=== PATIENT | female | born 1990 | race American Indian/Alaskan Native ===

== ENCOUNTER 2020-05-22 10:07 | Emergency (ER) | payer SELFPAY ==
--- NOTE | 2020-05-22 11:29 | XRay Report ---
LEFT SHOULDER 3 VIEWS INDICATION / CLINICAL INFORMATION: Lt. shoulder pain, decreased ROM COMPARISON: None available. FINDINGS: BONES / JOINT(S): No acute fracture or subluxation. No significant arthritis. SOFT TISSUES: No significant abnormality. ADDITIONAL FINDINGS: None. Signer Name: Denis Solano MD Signed: 05/22/2020 11:25 AM Workstation Name: [email or web address]
--- NOTE | 2020-05-22 11:39 | Emergency Department Report ---
ED Upper Extremity Inj HPI - General Chief Complaint: Shoulder Injury Stated Complaint: LEFT SHOULDER PAIN Time Seen by Provider: 05/22/20 10:26 Source: patient Mode of arrival: Ambulatory Limitations: No Limitations - Related Data Previous Rx's Medication Instructions Recorded Last Taken Type Acetaminophen/Codeine [Tylenol #3] 1 tab PO Q6H PRN #20 tab 02/05/16 Unknown Rx Ibuprofen [Motrin 800 MG tab] 800 mg PO Q8HR PRN #30 tablet 05/05/16 Unknown Rx Lidocain2.5%/Prilocai2.5% [Emla] 5 gm TP NOW #1 tube 05/05/16 Unknown Rx oxyCODONE /ACETAMINOPHEN [Percocet 1 tab PO Q4HR PRN #30 tab 05/05/16 Unknown Rx 5/325 mg] Naproxen [Naprosyn] 500 mg PO BID PRN #20 tablet 05/22/20 Unknown Rx Allergies Allergy/AdvReac Type Severity Reaction Status Date / Time No Known Allergies Allergy Verified 02/05/16 16:42 ED Review of Systems ROS: Stated complaint: LEFT SHOULDER PAIN Other details as noted in HPI ED Past Medical Hx - Past Medical History Hx Hypertension: No Hx Heart Attack/AMI: No Hx Congestive Heart Failure: No Hx Diabetes: No Hx Deep Vein Thrombosis: No Hx Renal Disease: No Hx Sickle Cell Disease: No Hx Seizures: No Hx Asthma: No Hx COPD: No Hx HIV: No - Surgical History Additional Surgical History: . ECTOPIC -TUBE REMOVED - Social History Smoking Status: Never Smoker - Medications Home Medications: Home Medications Medication Instructions Recorded Confirmed Last Taken Type Acetaminophen/Codeine [Tylenol #3] 1 tab PO Q6H PRN #20 tab 02/05/16 Unknown Rx Ibuprofen [Motrin 800 MG tab] 800 mg PO Q8HR PRN #30 tablet 05/05/16 Unknown Rx Lidocain2.5%/Prilocai2.5% [Emla] 5 gm TP NOW #1 tube 05/05/16 Unknown Rx oxyCODONE /ACETAMINOPHEN [Percocet 1 tab PO Q4HR PRN #30 tab 05/05/16 Unknown Rx 5/325 mg] Naproxen [Naprosyn] 500 mg PO BID PRN #20 tablet 05/22/20 Unknown Rx ED Physical Exam - General Limitations: No Limitations Critical care attestation.: If time is entered above; I have spent that time in minutes in the direct care of this critically ill patient, excluding procedure time. ED Disposition Clinical Impression: Shoulder strain Disposition: TO HOME OR SELFCARE Is pt being admited?: No Does the pt Need Aspirin: No Condition: Stable Additional Instructions: ICE REST TYLENOL OTC FOR PAIN NAPROSYN FOR PAIN - SEE RX SLING FOR COMFORT FOLLOW UP WITH DR CHRISTOPHER REFERRAL BELOW XRAY NO DISLOCATION OR FRACTURE Prescriptions: Naproxen [Naprosyn] 500 mg PO BID PRN #20 tablet PRN Reason: Pain Time of Disposition: 11:40
[2020-05-22 11:43] VITALS: BP 123/76
== END 2020-05-22 11:43 | disposition home or self-care (01) ==
LOC: ED 10:07
DX: S46.912A Strain of unspecified muscle, fascia and tendon at shoulder and upper arm level, left arm, initial encounter (principal); Z79.899 Other long term (current) drug therapy; Z98.890 Other specified postprocedural states; X58.XXXA Exposure to other specified factors, initial encounter; Y93.89 Activity, other specified; Y92.89 Other specified places as the place of occurrence of the external cause; Y99.8 Other external cause status
CPT/HCPCS: 99283

== ENCOUNTER 2021-08-01 21:38 | Emergency (ER) | payer MEDICAID ==
[2021-08-01] MEDS ORDERED: SODIUM CHLORIDE 0.9% 1000 ML IV SOLN IV ONE (22:15)
[2021-08-01] MEDS ORDERED: ONDANSETRON 4 MG/2 ML INJ IV ONE (22:15)
--- NOTE | 2021-08-01 22:18 | Emergency Department Report ---
ED General Adult HPI - General Chief complaint: Nausea/Vomiting/Diarrhea Stated complaint: HIGH FEVER NAUSEA/VOMIITING PUI?: Yes Time Seen by Provider: 08/01/21 22:13 Source: patient Mode of arrival: Ambulatory Limitations: No Limitations - History of Present Illness Initial comments: Patient is a 31-year-old female that presents emergency room with complaints of cough, nausea, vomiting, fever. Patient denies diarrhea. Patient complains of loss of taste and smell. Patient states she is not vaccinated against COVID-19. Patient states that she had a rapid Covid test done yesterday and was negative. Patient states her symptoms been going on for 3 days. Patient dates he cannot hold anything down. But states she feels dehydrated. Patient denies chest pain. Patient denies shortness of breath. Patient states she feels horrible. Patient denies recent travel. Patient denies recent international travel. Patient denies exposure to the novel coronavirus. Patient denies sick contacts. Patient denies diarrhea. Patient denies coming in contact with anybody with symptoms of the novel coronavirus. -: Sudden Severity scale (0 -10): 0 Consistency: constant Improves with: rest Worsens with: movement Associated Symptoms: cough, fever/chills, headaches, loss of appetite, malaise, nausea/vomiting. denies: confusion, chest pain, diaphoresis, rash, seizure, shortness of breath, syncope, weakness - Related Data Previous Rx's Medication Instructions Recorded Last Taken Type Acetaminophen/Codeine [Tylenol #3] 1 tab PO Q6H PRN #20 tab 02/05/16 Unknown Rx Ibuprofen [Motrin 800 MG tab] 800 mg PO Q8HR PRN #30 tablet 05/05/16 Unknown Rx Lidocain2.5%/Prilocai2.5% [Emla] 5 gm TP NOW #1 tube 05/05/16 Unknown Rx oxyCODONE /ACETAMINOPHEN [Percocet 1 tab PO Q4HR PRN #30 tab 05/05/16 Unknown Rx 5/325 mg] Naproxen [Naprosyn] 500 mg PO BID PRN #20 tablet 05/22/20 Unknown Rx Azithromycin [Zithromax Tri-Froilan] 500 mg PO DAILY 3 Days #3 tablet 08/02/21 Unknown Rx Benzonatate [Tessalon Perles] 100 mg PO Q6HR PRN #20 capsule 08/02/21 Unknown Rx Ondansetron [Zofran Odt] 4 mg PO Q6HR PRN #25 tab.rapdis 08/02/21 Unknown Rx methylPREDNISolone [Medrol 4MG 4 mg PO DAILY 6 Days #1 tab.ds.pk 08/02/21 Unkno wn Rx DOSEPAK (21 tabs)] Allergies Allergy/AdvReac Type Severity Reaction Status Date / Time No Known Allergies Allergy Verified 08/01/21 22:09 ED Review of Systems ROS: Stated complaint: HIGH FEVER NAUSEA/VOMIITING Other details as noted in HPI Constitutional: chills, fever, malaise Eyes: denies: eye pain, eye discharge, vision change ENT: denies: ear pain, throat pain Respiratory: cough. denies: shortness of breath, wheezing Cardiovascular: denies: chest pain, palpitations Endocrine: no symptoms reported Gastrointestinal: as per HPI, nausea, vomiting. denies: abdominal pain, diarrhea Genitourinary: denies: urgency, dysuria, discharge Musculoskeletal: denies: back pain, joint swelling, arthralgia Skin: denies: rash, lesions Neurological: denies: headache, weakness, paresthesias Psychiatric: denies: anxiety, depression Hematological/Lymphatic: denies: easy bleeding, easy bruising ED Past Medical Hx - Past Medical History Previous Medical History?: No Hx Hypertension: No Hx Heart Attack/AMI: No Hx Congestive Heart Failure: No Hx Diabetes: No Hx Deep Vein Thrombosis: No Hx Renal Disease: No Hx Sickle Cell Disease: No Hx Seizures: No Hx Asthma: No Hx COPD: No Hx HIV: No - Surgical History Past Surgical History?: Yes Additional Surgical History: . ECTOPIC -TUBE REMOVED - Family History Family history: no significant - Social History Smoking Status: Never Smoker Substance Use Type: None - Medications Home Medications: Home Medications Medication Instructions Recorded Confirmed Last Taken Type Acetaminophen/Codeine [Tylenol #3] 1 tab PO Q6H PRN #20 tab 02/05/16 Unknown Rx Ibuprofen [Motrin 800 MG tab] 800 mg PO Q8HR PRN #30 tablet 05/05/16 Unknown Rx Lidocain2.5%/Prilocai2.5% [Emla] 5 gm TP NOW #1 tube 05/05/16 Unknown Rx oxyCODONE /ACETAMINOPHEN [Percocet 1 tab PO Q4HR PRN #30 tab 05/05/16 Unknown Rx 5/325 mg] Naproxen [Naprosyn] 500 mg PO BID PRN #20 tablet 05/22/20 Unknown Rx Azithromycin [Zithromax Tri-Froilan] 500 mg PO DAILY 3 Days #3 tablet 08/02/21 Unknown Rx Benzonatate [Tessalon Perles] 100 mg PO Q6HR PRN #20 capsule 08/02/21 Unknown Rx Ondansetron [Zofran Odt] 4 mg PO Q6HR PRN #25 tab.rapdis 08/02/21 Unknown Rx methylPREDNISolone [Medrol 4MG 4 mg PO DAILY 6 Days #1 tab.ds.pk 08/02/21 Unknown Rx DOSEPAK (21 tabs)] ED Physical Exam - General Limitations: No Limitations General appearance: alert, in no apparent distress - Head Head exam: Present: atraumatic, normocephalic - Eye Eye exam: Present: normal appearance - ENT ENT exam: Present: mucous membranes moist - Neck Neck exam: Present: normal inspection - Respiratory Respiratory exam: Present: normal lung sounds bilaterally. Absent: respiratory distress, wheezes, rales - Cardiovascular Cardiovascular Exam: Present: regular rate, normal rhythm. Absent: systolic murmur, diastolic murmur, rubs, gallop - GI/Abdominal GI/Abdominal exam: Present: soft, normal bowel sounds. Absent: distended, tenderness, guarding - Extremities Exam Extremities exam: Present: normal inspection - Back Exam Back exam: Present: normal inspection - Neurological Exam Neurological exam: Present: alert, oriented X3 - Psychiatric Psychiatric exam: Present: normal affect, normal mood - Skin Skin exam: Present: warm, dry, intact, normal color. Absent: rash ED Course Vital Signs 08/01/21 08/01/21 08/02/21 21:38 22:38 00:16 Temperature 99.1 F 99.1 F Pulse Rate 127 H 112 H 107 H Respiratory 18 18 20 Rate Blood Pressure 132/84 129/79 126/72 [Right] O2 Sat by Pulse 99 100 97 Oximetry - Reevaluation(s) Reevaluation #1: I discussed all results and clinical findings with patient. I discussed plan of care with patient. Patient agrees with plan of care. Patient is stable for discharge. Patient will be discharged home. Patient given discharge instructions. Patient voiced understanding of discharge instructions. 08/02/21 00:22 ED Medical Decision Making - Lab Data Result diagrams: 08/01/21 22:15 08/01/21 22:15 - Radiology Data Radiology results: report reviewed, image reviewed interpreted by me: Chest x-ray: No pneumonia, no pneumothorax, no foreign body, no osseous findings, no acute findings CHEST 1 VIEW 08/01/2021 10:52 PM INDICATION / CLINICAL INFORMATION: fever. COMPARISON: None available. FINDINGS: SUPPORT DEVICES: None. HEART / MEDIASTINUM: No significant abnormality. LUNGS / PLEURA: No significant pulmonary or pleural abnormality. No pneumothorax. ADDITIONAL FINDINGS: No significant additional findings. IMPRESSION: 1. No acute findings. - Medical Decision Making Patient is a 31-year-old female that presents patient with complaints of cough, fever, nausea, vomiting, loss of smell, loss of taste. Patient had a negative Covid test yesterday. Patient had labs done which were sent. Patient was never hypoxic. Patient's chest x-ray was negative for acute findings. Patient is stable for discharge. Patient will be discharged home. Patient will be given Zithromax and Medrol Dosepak. Patient also be given Zofran. Patient will be given Tessalon Perles for cough. Patient does not require inpatient services. Patient not require further emergency medical service. Patient to be managed as an outpatient. I discussed all results and clinical findings with patient. I discussed plan of care with patient. Patient agrees with plan of care. Patient is stable for discharge. Patient will be discharged home. Patient given discharge instructions. Patient voiced understanding of discharge instructions. - Differential Diagnosis Covid, URI, cough, gastroenteritis, nausea, vomiting, fever Critical care attestation.: If time is entered above; I have spent that time in minutes in the direct care of this critically ill patient, excluding procedure time. ED Disposition Clinical Impression: Person under investigation for COVID-19, Cough, Gastroenteritis Upper respiratory infection Qualifiers: URI type: unspecified URI Qualified Code(s): J06.9 - Acute upper respiratory infection, unspecified Fever Qualifiers: Fever type: unspecified Qualified Code(s): R50.9 - Fever, unspecified Nausea & vomiting Qualifiers: Vomiting type: unspecified Vomiting Intractability: non-intractable Qualified Code(s): R11.2 - Nausea with vomiting, unspecified Disposition: HOME / SELF CARE / HOMELESS Is pt being admited?: No Does the pt Need Aspirin: No Condition: Stable Instructions: Viral Respiratory Infection, [id number], Upper Respiratory Infection, Adult, [id number], Viral Gastroenteritis, Adult, Fever, Adult, Cough, Adult, [id number], Food Choices to Help Relieve Diarrhea, Adult, Nausea and Vomiting, Adult, [id number] Additional Instructions: Patient to follow-up with primary care in 2 to 3 days. Patient to have outpatient Covid testing to include rapid and PCR. Patient to quarantine for 14 days. Patient to eat a brat diet. Patient to follow CDC guidelines. Patient to use a mask regularly. Patient to rest. Patient to increase water.. Patient to take Tylenol or ibuprofen as needed for pain. Patient to take meds as directed. Patient to return to the ER if condition worsens, changes or new symptoms arise. Prescriptions: methylPREDNISolone [Medrol 4MG DOSEPAK (21 tabs)] 4 mg PO DAILY 6 Days #1 tab.ds.pk Benzonatate [Tessalon Perles] 100 mg PO Q6HR PRN #20 capsule PRN Reason: Cough Azithromycin [Zithromax Tri-Froilan] 500 mg PO DAILY 3 Days #3 tablet Ondansetron [Zofran Odt] 4 mg PO Q6HR PRN #25 tab.rapdis PRN Reason: Nausea And Vomiting Referrals: JUDY FORREST MD [Staff Physician] - 2-3 Days Time of Disposition: 00:31
[2021-08-01 22:33] LABS: Basophils % (Auto) 0.7 % (0.0-1.8); Eosinophils % (Auto) 0.6 % (0.0-4.3); Hematocrit 44.1 % (30.3-42.9); Hemoglobin 15.1 gm/dl (10.1-14.3); Lymphocytes % (Auto) 20.8 % (13.4-35.0); Mean Corpuscular HGB Conc 34 % (30-34); Mean Corpuscular Volume 93 fl (79-97); Monocytes # (Auto) 0.4 K/mm3 (0.0-0.8); Monocytes % (Auto) 7.6 % (0.0-7.3); Platelet Count 166 K/mm3 (140-440); Red Blood Count 4.75 M/mm3 (3.65-5.03); Red Cell Distribution Width 14.8 % (13.2-15.2)
[2021-08-01 22:53] LABS: Alanine Aminotransferase 89 units/L (7-56); Albumin 3.7 g/dL (3.9-5); Blood Urea Nitrogen 4 mg/dL (7-17); Calcium 8.9 mg/dL (8.4-10.2); Hemolysis Index 2
[2021-08-01 22:55] LABS: BUN/Creatinine Ratio 6
--- NOTE | 2021-08-01 23:20 | XRay Report ---
CHEST 1 VIEW 08/01/2021 10:52 PM INDICATION / CLINICAL INFORMATION: fever. COMPARISON: None available. FINDINGS: SUPPORT DEVICES: None. HEART / MEDIASTINUM: No significant abnormality. LUNGS / PLEURA: No significant pulmonary or pleural abnormality. No pneumothorax. ADDITIONAL FINDINGS: No significant additional findings. IMPRESSION: 1. No acute findings. Signer Name: Ye Paz MD Signed: 08/01/2021 11:16 PM Workstation Name: [id number]
[2021-08-02 01:15] VITALS: BP 130/80
== END 2021-08-02 01:10 | disposition home or self-care (01) ==
LOC: ED 21:38
DX: K52.9 Noninfective gastroenteritis and colitis, unspecified (principal); J06.9 Acute upper respiratory infection, unspecified; R05.9 Cough, unspecified; Z20.822 Contact with and (suspected) exposure to COVID-19; R50.9 Fever, unspecified; R11.2 Nausea with vomiting, unspecified; Z98.890 Other specified postprocedural states
CPT/HCPCS: 36415; 71045; 80053; 84703; 85025; 96361; 96374; 99284; J2405; J7030